=== PATIENT | male | born 1995 | race Caucasian/White ===

== ENCOUNTER 2022-06-26 09:30 | Day surgery (SDC) | payer BC, SELFPAY ==
[2022-06-26] MEDS ORDERED: Bupivacaine/Epinephrine 0.25% 30 ML VIAL ONE (10:11)
[2022-06-26] MEDS ORDERED: fentaNYL PF 100 MCG/2 ML SYRINGE ONE (10:54)
[2022-06-26] MEDS ORDERED: Midazolam HCl 2 mg/2 ml Vial ONE (10:58)
[2022-06-26] MEDS ORDERED: Ketorolac Tromethamine 30 MG/ML VIAL ONE (10:59)
[2022-06-26] MEDS ORDERED: PHENYLEPHRINE-NS 100 MCG/ML 10 ML SYRINGE ONE (10:59)
[2022-06-26] MEDS ORDERED: Lidocaine 1% PF 5 ML VIAL ONE (10:59)
[2022-06-26] MEDS ORDERED: Ondansetron PF 4 MG/2 ML Vial ONE (10:59)
[2022-06-26] MEDS ORDERED: Dexamethasone 20 MG/5 ML VIAL ONE (10:59)
[2022-06-26] MEDS ORDERED: PROPOFOL 200 MG/20 ML VIAL ONE (10:59)
[2022-06-26] MEDS ORDERED: Succinylcholine Chloride 100 MG/5 ML SYRINGE FS ONE (10:59)
[2022-06-26] MEDS ORDERED: Rocuronium Bromide 10 MG/ML (10ML VIAL) ONE (10:59)
[2022-06-26] MEDS ORDERED: SUGAMMADEX SODIUM 200 MG/2 ML VIAL ONE (11:00)
[2022-06-26] MEDS ORDERED: Meperidine HCl/PF 25 MG/ML VIAL ONE (12:18)
[2022-06-26] MEDS ORDERED: Fentanyl 100 MCG/2 ML VIAL ONE (12:26)
[2022-06-26] MEDS ORDERED: Promethazine HCl 25 MG/ML VIAL ONE (12:26)
[2022-06-26] MEDS ORDERED: HYDROcodone/Acetaminophen 5/325 mg Tablet ONE (14:50)
== END 2022-06-26 15:00 | disposition home or self-care (01) ==
LOC: SDC 09:30
PROC: 0DTJ4ZZ Resection of Appendix, Percutaneous Endoscopic Approach (ICD-10-PCS; principal; 2022-06-26)
DX: K35.80 Unspecified acute appendicitis (principal); K38.8 Other specified diseases of appendix
CPT/HCPCS: 88304; A4649; C1776; C1889; J1100; J1885; J2175; J2250; J2405; J2550; J2704; J3010